=== PATIENT | female | born 1985 | race Caucasian/White ===

== ENCOUNTER 2017-03-25 10:44 | Emergency (ER) | payer OTHER ==
[2017-03-25 11:35] VITALS: BP 122/76
--- NOTE | 2017-03-25 11:56 | UC ---
Throat Pain/Nasal Tony HPI - HPI Summary HPI Summary: 31 Y/O female presents with C/O sore throat and upper respiratory congestion x 5 days. States throat pain 10/10, denies nausea, vomiting, dyspnea, or myalgias. Is drinking fluids without difficulty. Medical history and medications reviewed at this visit. - History of Current Complaint Chief Complaint: UCRespiratory Stated Complaint: COUGH, SORE THROAT Time Seen by Provider: 03/25/17 11:32 Hx Obtained From: Patient Hx Last Menstrual Period: pt states she is unable to have children Onset/Duration: Gradual Onset Severity: Severe Pain Intensity: 10 Pain Scale Used: 0-10 Numeric Cough: Nonproductive Associated Signs & Symptoms: Positive: Negative Related History: Seasonal Allergies - Epiglottits Risk Factors Epiglottis Risk Factors: Negative - Allergies/Home Medications Allergies/Adverse Reactions: Allergies Allergy/AdvReac Type Severity Reaction Status Date / Time Dextromethorphan Allergy Severe BREATHING Verified 03/25/17 11:35 [From NyQuil Nighttime PROBLEM Cold/Flu Medicine] Doxylamine Allergy Severe BREATHING Verified 03/25/17 11:35 [From NyQuil Nighttime PROBLEM Cold/Flu Medicine] Ethanol Allergy Severe BREATHING Verified 03/25/17 11:35 [From NyQuil Nighttime PROBLEM Cold/Flu Medicine] Pseudoephedrine Allergy Severe BREATHING Verified 03/25/17 11:35 [From NyQuil Nighttime PROBLEM Cold/Flu Medicine] Acetaminophen [From Tylenol] Allergy Swelling Verified 03/25/17 11:35 VICKS Allergy Severe BREATHING Uncoded 03/25/17 11:35 PROBLEM PMH/Surg Hx/FS Hx/Imm Hx Previously Healthy: Yes - Surgical History Surgical History: Yes Surgery Procedure, Year, and Place: BILAT EYE SURGERY - Family History Known Family History: Positive: None, Other - maternal-asthma - Social History Alcohol Use: None Substance Use Type: None Smoking Status (MU): Never Smoked Tobacco Household Exposure Type: Cigarettes Review of Systems Constitutional: Chills Skin: Negative Eyes: Negative ENT: Sore Throat, Sinus Congestion Respiratory: Cough Cardiovascular: Negative Gastrointestinal: Negative Genitourinary: Negative Motor: Negative Neurovascular: Negative Musculoskeletal: Negative Neurological: Negative Psychological: Negative Is Patient Immunocompromised?: No All Other Systems Reviewed And Are Negative: Yes Physical Exam Triage Information Reviewed: Yes Appearance: Ill-Appearing - Upper respiratory congestion Vital Signs: Initial Vital Signs Temp 98.6 F 01/27/18 11:31 Pulse 107 03/25/17 11:31 Resp 18 03/25/17 11:31 BP 122/76 03/25/17 11:31 Pulse Ox 100 03/25/17 11:31 Vital Signs Reviewed: Yes ENT: Positive: Pharyngeal erythema, TMs normal Dental Exam: Other Dental: Positive: Gross Decay/Caries @ - Diffuse affecting majority of dentition Neck exam: Normal Neck: Positive: No Lymphadenopathy Respiratory Exam: Normal Respiratory: Positive: Lungs clear, Normal breath sounds Cardiovascular Exam: Other Cardiovascular: Positive: Tachycardia Abdominal Exam: Normal Abdomen Description: Positive: Nontender Bowel Sounds: Positive: Present Musculoskeletal Exam: Normal Neurological Exam: Normal Psychological Exam: Normal Skin Exam: Normal Throat Pain/Nasal Course/Dx - Differential Dx/Diagnosis Differential Diagnosis/HQI/PQRI: Pharyngitis, Tonsillitis, URI Provider Diagnoses: Viral illness, pharyngitis Discharge - Discharge Plan Condition: Stable Disposition: HOME Patient Education Materials: Pharyngitis (ED) Referrals: Manfred Hoang MD [Primary Care Provider] - Additional Instructions: Your strep test is negative. Get plenty of rest, increase fluids. Avoid second hand smoke. Please return to urgent care if you are unable to swallow liquids, have fevers that do not respond to Tylenol or Ibuprofen, or if you have shortness of breath.
== END 2017-03-25 12:35 | disposition home or self-care (01) ==
LOC: UCEAST 10:44
DX: B34.9 Viral infection, unspecified (principal); J02.9 Acute pharyngitis, unspecified; Z88.6 Allergy status to analgesic agent
CPT/HCPCS: 87651; 99212; G0463

== ENCOUNTER 2019-02-09 18:32 | Emergency (ER) | payer OTHER ==
--- OUTSIDE RECORDS SUMMARY | 2019-02-09 18:37 | XMS REPORT | Summary of Care ---
:1985 Author Organization [facility] Address [address] [facility] [place] [address] Care Team Providers Name Role Phone Patrick Monae Primary Care Provider Reason for Visit Reason Comments Follow Up Follow up to (R) knee pain Encounter Details Date Type Department Care Team Description 01/09/2019 Office Visit [facility] Patrick Monae, Migraine without status migrainosus, not intractable, unspecified migraine type (Primary Dx); Practice [address] [facility] Pre-diabetes [address] [place] [address] [place] [address] [phone] Allergies Active Allergy Reactions Severity Noted Date Comments Bee Anaphylaxis 07/07/2015 Night-Time Cold-Flu Relief Swelling 02/23/2017 Throat documented as of this encounter (statuses as of 01/09/2019) Medications Medication Sig Dispensed Refills Start End Date Status Date EPINEPHrine 0.3 by Injection 0 Active MG/0.3ML Injection route. Solution Auto-injector pantoprazole TAKE ONE 90 Tab 0 Active (PROTONIX) 40 MG TABLET BY 9 Oral Tab MOUTH EVERY ECIndications: DAY BEFORE Gastroesophageal BREAKFAST reflux disease, esophagitis presence not specified diclofenac 4 g by Topical 1 Tube 2 Active (VOLTAREN) 1 % route FOUR 9 Transdermal TIMES DAILY. GelIndications: It band syndrome, right topiramate (TOPAMAX) Take 1 Tab by 90 Tab 0 Active 25 MG Oral mouth 9 TabIndications: DIRECTED. Go Migraine without to 2 tabs a status migrainosus, day after 2 not intractable, weeks unspecified migraine type metoclopramide Take 1 Tab by 30 Tab 0 Active (REGLAN) 10 MG Oral mouth DAILY 9 TabIndications: NEEDED Migraine without (migraine). status migrainosus, not intractable, unspecified migraine type tizanidine Take 1 Tab by 90 Tab 0 Active (ZANAFLEX) 4 MG Oral mouth DAILY. 9 Tab propranolol (INDERAL Take 1 Cap by 30 Cap 0 01/10/20 Discontinued LA) 80 MG Oral mouth EVERY 9 19 CAPSULE SR 24 MORNING. HRIndications: Migraine without status migrainosus, not intractable, unspecified migraine type cyclobenzaprine Take 1 Tab by 42 Tab 0 01/10/20 Discontinued (FLEXERIL) 10 MG mouth THREE 9 19 Oral Tab TIMES DAILY NEEDED (may cause of drowsiness) for up to 42 doses. cyclobenzaprine Take 1 Tab by 42 Tab 1 01/10/20 Discontinued (FLEXERIL) 10 MG mouth THREE 19 (Duplicate Oral Tab TIMES DAILY Order) NEEDED (pain). Watch for drowsiness documented as of this encounter (statuses as of 01/09/2019) Active Problems Problem Noted Date Moderate intellectual disabilities 12/16/2015 Right knee pain 08/03/2015 Migraine without aura and without status migrainosus, not intractable 2015 documented as of this encounter (statuses as of 01/09/2019) Resolved Problems Problem Noted Date Resolved Date Joint pain 11/30/2015 12/16/2015 documented as of this encounter (statuses as of 01/09/2019) Social History Tobacco Use Types Packs/Day Years Used Date Never Smoker Smokeless Tobacco: Never Used Alcohol Use Drinks/Week oz/Week Comments No Sex Assigned at Date Recorded Not on file Job Start Date Occupation Industry Not on file Not on file Not on file Travel History Travel Start Travel End No recent travel history available. documented as of this encounter Last Filed Vital Signs Vital Sign Reading Time Taken Comments Blood Pressure 106/72 01/09/2019 10:41 AM EST Pulse 82 01/09/2019 10:41 AM EST Temperature 36.3 01/09/2019 10:41 AM EST C (97.3 F) Respiratory Rate 18 01/09/2019 10:41 AM EST Oxygen Saturation 98% 01/09/2019 10:41 AM EST Inhaled Oxygen Concentration - - Weight 83.6 kg (184 lb 4.8 oz) 01/09/2019 10:41 AM EST Height 147.3 cm (4' 10") 01/09/2019 10:41 AM EST Body Mass Index 38.52 01/09/2019 10:41 AM EST documented in this encounter Patient Instructions Patient InstructionsPatrick Monae DO - 01/09/2019 10:40 AM ESTStart topamax: 1 tab a day for first 2 weeks Go to 2 tabs a day after 2 weeks Use reglan for breaking headaches documented in this encounter Progress Notes Patrick Monae DO - 01/09/2019 10:40 AM EST PATIENT: Jannette Kelly : 1985 DATE OF SERVICE: 01/09/2019 CHIEF COMPLAINT: Chief Complaint Patient presents with Follow Up Follow up to (R) knee pain Subjective HISTORY OF PRESENT ILLNESS: Jannette Kelly is a 33-y.o. female. HPI Migraine follow up Elavil made her too drowsy Inderal not working at 80 mg Past Medical History: Diagnosis Date Migraine Family History Problem Relation Age of Onset High Cholesterol Mother Heart Maternal Grandmother Diabetes Maternal Grandmother High Cholesterol Maternal Grandmother Hypertension Maternal Grandmother Diabetes Maternal Grandfather Current Outpatient Medications Medication Sig diclofenac (VOLTAREN) 1 % Transdermal Gel 4 g by Topical route FOUR TIMES DAILY. EPINEPHrine 0.3 MG/0.3ML Injection Solution Auto-injector by Injection route. metoclopramide (REGLAN) 10 MG Oral Tab Take 1 Tab by mouth DAILY NEEDED (migraine). pantoprazole (PROTONIX) 40 MG Oral Tab EC TAKE ONE TABLET BY MOUTH EVERY DAY BEFORE BREAKFAST tizanidine (ZANAFLEX) 4 MG Oral Tab Take 1 Tab by mouth DAILY. topiramate (TOPAMAX) 25 MG Oral Tab Take 1 Tab by mouth DIRECTED. Go to 2 tabs a day after2 weeks No current facility-administered medications for this visit. Allergies Allergen Reactions Bee Anaphylaxis Nyquil Cold & [Night-Time Cold-Flu Relief] Swelling Throat Social History Socioeconomic History Marital status: Single Spouse name: Not on file Number of children: Not on file Years of education: Not on file Highest education level: Not on file Occupational History Not on file Social Needs Financial resource strain: Not on file Food insecurity: Worry: Not on file Inability: Not on file Transportation needs: Medical: Not on file Non-medical: Not on file Tobacco Use Smoking status: Never Smoker Smokeless tobacco: Never Used Substance and Sexual Activity Alcohol use: No Drug use: Not on file Sexual activity: Not on file Lifestyle Physical activity: Days per week: Not on file Minutes per session: Not on file Stress: Not on file Relationships Social connections: Talks on phone: Not on file Gets together: Not on file Attends mandaen service: Not on file Active member of club or organization: Not on file Attends meetings of clubs or organizations: Not on file Relationship status: Not on file Intimate partner violence: Fear of current or ex partner: Not on file Emotionally abused: Not on file Physically abused: Not on file Forced sexual activity: Not on file Other Topics Concern Back Care Not Asked Bike Helmet Not Asked Blood Transfusions Not Asked Caffeine Concern Not Asked Exercise Not Asked Hobby Hazards Not Asked International Travel Not Asked Service Not Asked Occupational Exposure Not Asked Seat Belt Not Asked Self-Exams Not Asked Sleep Concern Not Asked Special Diet Not Asked Stress Concern Not Asked Weight Concern Not Asked Social History Narrative Not on file REVIEW OF SYSTEMS: Review of Systems Constitutional: Negative for fever. Cardiovascular: Negative for chest pain. Objective PHYSICAL EXAM: VITALS: BP 106/72 (BP Location: Left arm, Patient Position: Sitting) | Pulse 82 | Temp 97.3 F(36.3 C) (Tympanic) | Resp 18 | Ht 4' 10" (1.473 m) | Wt 184 lb 4.8 oz (83.6 kg) | SpO2 98%| BMI 38.52 kg/m Body mass index is 38.52 kg/m. Physical Exam Cardiovascular: Rate and Rhythm: Normal rate. Pulmonary: Effort: Pulmonary effort is normal. Neurological: Mental Status: She is alert. ASSESSMENT / IMPRESSION: ICD-9-CM ICD-10-CM 1. Migraine without status migrainosus, not intractable, unspecified migraine type 346.90 G43.909 topiramate (TOPAMAX) 25 MG Oral Tab metoclopramide (REGLAN) 10 MG Oral Tab 2. Pre-diabetes 790.29 R73.03 GLYCOHEMOGLOBIN A1C GLYCOHEMOGLOBIN A1C Plan Patient Instructions Start topamax: 1 tab a day for first 2 weeks Go to 2 tabs a day after 2 weeks Use reglan for breaking headaches Author: Patrick Monae DO 01/09/2019 13:05 documented in this encounter Plan of Treatment Date Type Specialty Care Team Description 04/26/2019 Office Visit Family Practice Saran Herrmann MD [address] [place] [address] [phone] Name Type Priority Associated Diagnoses Date/Time GLYCOHEMOGLOBIN A1C Lab Routine Pre-diabetes 01/09/2019 11:22 AM EST Name Type Priority Associated Diagnoses Order Schedule GLYCOHEMOGLOBIN A1C Lab Routine Pre-diabetes Expected: 01/09/2019 (Approximate), Expires: 01/10/2020 Health Maintenance Due Date Last Done Comments HIV SCREENING 2001 PAP SMEAR 09/11/2017 09/11/2014 (Previously completed) DIABETES SCREENING 04/23/2019 04/23/2018, 04/23/2018, 07/07/2015 DEPRESSION SCREENING 09/14/2019 09/13/2018 INFLUENZA VACCINE (#1) 2019 Postponed from 10/28/2018 (Patient refused) HPV IMMUNIZATION SERIES Aged Out No longer eligible based on patient's age to complete this topic MENINGOCOCCAL VACCINE IMM Aged Out No longer eligible based on patient's age to complete this topic PNEUMOCOCCAL 0-64 YRS Aged Out No longer eligible based on patient's age to complete this topic documented as of this encounter Goals Goal Patient Goal Associated Recent Patient-Stated? Author Type Problems Progress Glycohemoglobin A1c Diabetes 5.7 No Patrick Monae < 7.0 (04/23/2018 DO Peter 11:14 AM EST) Note: This is an individualized treatment (diabetes control, HgbA1C) goal for Jannette Hayesaughlin: Displayed above is your progress towards your HgbA1C goal. Your goal is shown above (on the left); your most recent HgbA1C is shown on the right. Note that lower numbers are better. Weight loss vs. 18 mo Lifestyle 0.7 (01/09/2019 10:41 AM EST) No Patrick Monae DO max (lbs) >= 10 Note: This is an individualized lifestyle goal for Jannette Kelly: Your body mass index (BMI) is more than 30. You should lose weight. A reasonable starting goal is to lose 10 pounds. Displayed above is how many pounds you have lost thus far towards your 10 pound weight loss goal. Keep immunizations current Lifestyle No Patrick Monae DO Note: This is an individualized lifestyle goal for Jannette Kelly: Please be sure to keep up-to-date on recommended immunizations. For example, this would include a yearly influenza vaccine. Immunization status can be seen by looking at the Health Maintenance sections of your [facility], Plan of Care, and any After Visit Summaries. Take all prescribed medications as directed Self-management No Patrick Monae DO Note: This is an individualized self-management goal for Jannette Kelly: Please take all prescribed medications as directed. 1. Do not skip doses. If you cannot afford your medications, talk with your doctor. 2. Use a pill reminder system such as a pill box if needed. Your pharmacist can help you with this. 3. Contact your Pharmacy 5 days before your medication runs out. If you cannot take your medications for any reasons, talk with your doctor. 4. Please bring all of your medication bottles and inhalers (or a list of all your medications/inhalers) with you to every visit. Potential barriers to meeting all of your care plan goals will continue to be addressed on an ongoing basis. documented as of this encounter Results Not on filedocumented in this encounter Visit Diagnoses Diagnosis Migraine without status migrainosus, not intractable, unspecified migraine type - Primary Pre-diabetes Other abnormal glucose documented in this encounter Guarantor Name Account Type Relation to Date of Phone Billing Patient Address Jannette Kelly Personal/Family 1985 [address] (Home) [facility] [place] [address] documented as of this encounter
--- OUTSIDE RECORDS SUMMARY | 2019-02-09 18:37 | XMS REPORT | Summary of Care ---
:1985 Author Organization [facility] Address [address] [facility] [place] [address] Care Team Providers Name Role Phone Letha Patrick Green Primary Care Provider Reason for Visit Reason Comments Knee Pain right knee, fall Hip Burn right hip, from fall Encounter Details Date Type Department Care Team Description 12/20/2018 Office Visit [facility]lin Jasmina Barba It band syndrome, Practice DIRECTOR [employer] right (Primary Dx) [address] [place] [address] [place] [address] [phone] Allergies Active Allergy Reactions Severity Noted Date Comments Bee Anaphylaxis 07/07/2015 Night-Time Cold-Flu Relief Swelling 02/23/2017 Throat documented as of this encounter (statuses as of 12/20/2018) Medications Medication Sig Dispensed Refills Start Date End Date Status EPINEPHrine 0.3 MG/0.3ML by Injection 0 Active Injection Solution route. Auto-injector propranolol (INDERAL LA) Take 1 Cap by 30 Cap 0 12/11/2018 Active 80 MG Oral CAPSULE SR 24 mouth EVERY HRIndications: Migraine MORNING. without status migrainosus, not intractable, unspecified migraine type pantoprazole (PROTONIX) TAKE ONE TABLET 90 Tab 0 12/11/2018 Active 40 MG Oral Tab BY MOUTH EVERY ECIndications: DAY BEFORE Gastroesophageal reflux BREAKFAST disease, esophagitis presence not specified diclofenac (VOLTAREN) 1 4 g by Topical 1 Tube 2 12/20/2018 Active % Transdermal route FOUR TIMES GelIndications: It band DAILY. syndrome, right documented as of this encounter (statuses as of 12/20/2018) Active Problems Problem Noted Date Moderate intellectual disabilities 12/16/2015 Right knee pain 08/03/2015 Migraine without aura and without status migrainosus, not intractable 2015 documented as of this encounter (statuses as of 12/20/2018) Resolved Problems Problem Noted Date Resolved Date Joint pain 11/30/2015 12/16/2015 documented as of this encounter (statuses as of 12/20/2018) Social History Tobacco Use Types Packs/Day Years [...] Sign Reading Time Taken Comments Blood Pressure 130/60 12/20/2018 10:43 AM EDT Pulse 64 12/20/2018 10:43 AM EDT Temperature 36.6 12/20/2018 10:43 AM EDT C (97.9 F) Respiratory Rate - - Oxygen Saturation 98% 12/20/2018 10:43 AM EDT Inhaled Oxygen Concentration - - Weight 82.6 kg (182 lb) 12/20/2018 10:43 AM EDT Height 147.3 cm (4' 10") 12/20/2018 10:43 AM EDT Body Mass Index 38.04 12/20/2018 10:43 AM EDT documented in this encounter Patient Instructions Patient InstructionsJasmina Garcia NP - 12/20/2018 10:40 AM EDTUse heating pads/ cold packs to the area. Rest when able, avoid activities that make the pain worse. Voltaren cream 3-4 times daily for 5 days, then cut back to just as needed. Do at home exercises once a day. Follow up with Dr. Monae as needed if pain continues or worsens. Patient Education Sciatica Exercises About this topic Sciatica is pain, weakness, numbness, or tingling that runs from your buttocks down the back of yourleg to your feet. It happens when something is pressing on , or bothering, the sciatic nerve. This large nerve starts in your lower back. It runs all the way down the back of your leg. The exercises for sciatica may be different based on the cause of your pain. General Before starting with a program, ask your doctor if you are healthy enough to do these exercises. Your doctor may have you work with a new product trainer or physical therapist to make a safe exercise program to meet your needs. Stretching Exercises Stretching exercises keep your muscles flexible. They also stop them from getting tight. Start by doing each of these stretches 2 to 3 times. In order for your body to make changes, you will need to hold these stretches for 20 to 30 seconds. Try to do the stretches 2 to 3 times each day. Do all exercises slowly. Single knee to chest stretches ? Lie on your back. Pull one knee towards your chest until you feel a stretch in your lower back and buttock area. Repeat with the other knee. If you have knee problems, pull your knee up by grabbing the back of your thigh instead of the front of your knee. You can also do this exercise by grabbing both knees at the same time. Deep hip stretches lying down ? Lie on your back and bend one knee, keeping that foot flat on the floor. Cross the other leg over your knee. Slowly , pull the bottom leg towards your chest until you feel a stretch in the other buttock. Repeat using the opposite leg as the bottom leg. Deep hip stretches sitting ? Sit on the floor with both legs straight. Take one leg and cross it over the other leg so that the foot of your top leg is next to your outer knee. Now, take the elbowon the opposite side of your bent knee and bring it to the outside of the bent knee. With your elbow, slowly push the bent knee further across the body to get a good stretch in the hip. Hamstring stretches seated ? Sit up straight on the edge of a chair. Make sure you keep your back straight. Straighten your knee on your left leg. Keep your heel on the floor. Bend forward at the waist towards your foot while keeping your upper back straight. Bend forward until you feel a stretchin the back of your thigh. Repeat on the other leg. Strengthening Exercises Strengthening exercises keep your muscles firm and strong. Start by repeating each exercise 2 to 3 times. Work up to doing each exercise 10 times. Try to do the exercises 2 to 3 times each day. Hold each exercise for 3 to 5 seconds. Do all exercises slowly. Hip lifts ? Lie on your back with your knees bent and feet flat on the floor. Tighten your stomach muscles and lift your buttocks off the floor. Relax. Arm and leg lifts on hands and knees ? Start on your hands and knees. With all of these exercises, keep your back as level as possible. If you are having trouble with this, you may want to put a small object on your back such as a book. If it falls off, you are not keeping your back level enough during the exercise. ? Lift one arm up to shoulder level and hold. Lower it back down. Now, lift up the other arm and hold. ? Lift one leg up and kick it straight out until it is in line with your back and hold. Lower it back down. Now, lift up the other leg and hold. ? Lift one arm and the OPPOSITE leg up at the same time and hold. Lower them down. Now, repeat usingthe other arm and leg. This is a very hard exercise. It may take time to be able to do this. What will the results be? Better flexibility Less pain Less numbness and tingling Easier to walk and do other activities Increased core strength Helpful tips Stay active and work out to keep your muscles strong and flexible. Keep a healthy weight to avoid putting too much stress on your spine. Eat a healthy diet to keep your muscles healthy. Be sure you do not hold your breath when exercising. This can raise your blood pressure. If youtend to hold your breath, try counting out loud when exercising. If any exercise bothers you, stop right away. Always warm up before stretching. Heated muscles stretch much easier than cool muscles. Stretching cool muscles can lead to injury. Try walking or cycling at an easy pace for a few minutes to warm up your muscles. Do this againafter exercising. Never bounce when doing stretches. Doing exercises before a meal may be a good way to get into a routine. Exercise may be slightly uncomfortable, but you should not have sharp pains. If you do get sharp pains, stop what you are doing. If the sharp pains continue, call your doctor. Where can I learn more? NHS Choices http://www.nhs.uk/[facility]/Backpain/Pages/sciatica-exercises.aspx Last Reviewed Date 2015-12-08 Consumer Information Use and Disclaimer This information is not specific medical advice and does not replace information you receive from your health care provider. This is only a brief summary of general information. It does NOT include allinformation about conditions, illnesses, injuries, tests, procedures, treatments, therapies, discharge instructions or life-style choices that may apply to you. You must talk with your health care provider for complete information about your health and treatment options. This information should not beused to decide whether or not to accept your health care providers advice, instructions or recommendations. Only your health care provider has the knowledge and training to provide advice that isright for you. Copyright Copyright 2018 [employer] and its affiliates and/or licensors. All rights reserved. documented in this encounter Progress Notes Jasmina Garcia NP - 12/20/2018 10:40 AM EDT PATIENT: Jannette Kelly : 1985 DATE OF SERVICE: 12/20/2018 CHIEF COMPLAINT: Chief Complaint Patient presents with Knee Pain right knee, fall Hip Burn right hip, from fall Subjective HISTORY OF PRESENT ILLNESS: Jannette Kelly is a 33-y.o. female. HPI She fell in 2005 and has had right knee and hip pain ever since. Has done physical therapy in the past which didn't help. She has been going to see Dr. Almanzar - last visit was 11/26/2018: History of Present Illness: Jannette Kelly is a 33-y.o. female today for follow-up. Patient was previously seen by Dr. Hunt on 07/11/2018, and also been seen by Betty Armendariz or JOSEE. The patient has been seen for low backdiscomfort and also IT band tendinitis. The patient had been referred to physical therapy and chiropractic intervention. However the patient's mother states that the patient was worse with physical therapy. Plan: I would like to refer the patient for physical therapy the patient is in agreement with being seen by physical therapy patient will also be given a prescription for Medrol Dosepak. The plan at this point is for the patient to be seen back in the Dr. Cruz's office no further orthopedic intervention is indicated at this time as she has been seen by myself and Dr. Hunt. All questions answered. She acknowledges that Dr. Almanzar had suggested another course of physical therapy but she does not want to do this, feels it will make the pain worse. Last time she did physical therapy she went twicea week and pain became worse. Right now only treatment is mother massaging the area. Sometimes heating pad but not often but thisdoes help. It is not worse today, it is the same as it always been, just not getting better. When it's cold itgets worse, needs to turn the heat on. Past Medical History: Diagnosis Date Migraine Family History Problem Relation Age of Onset High Cholesterol Mother Heart Maternal Grandmother Diabetes Maternal Grandmother High Cholesterol Maternal Grandmother Hypertension Maternal Grandmother Diabetes Maternal Grandfather Current Outpatient Medications Medication Sig diclofenac (VOLTAREN) 1 % Transdermal Gel 4 g by Topical route FOUR TIMES DAILY. EPINEPHrine 0.3 MG/0.3ML Injection Solution Auto-injector by Injection route. pantoprazole (PROTONIX) 40 MG Oral Tab EC TAKE ONE TABLET BY MOUTH EVERY DAY BEFORE BREAKFAST propranolol (INDERAL LA) 80 MG Oral CAPSULE SR 24 HR Take 1 Cap by mouth EVERY MORNING. No current facility-administered medications for this visit. [...] file Gets together: Not on file Attends scientologist service: Not on file Active member of [...] file REVIEW OF SYSTEMS: Review of Systems Musculoskeletal: Positive for back pain, joint pain (see hpi) and myalgias. Neurological: Negative for tingling, sensory change and weakness. Objective PHYSICAL EXAM: VITALS: BP 130/60 | Pulse 64 | Temp 97.9 F (36.6 C) (Tympanic) | Ht 4' 10" (1.473 m) | Wt 182 lb (82.6 kg) | SpO2 98% | BMI 38.04 kg/m Body mass index is 38.04 kg/m. Physical Exam Musculoskeletal: Right hip: She exhibits normal range of motion, normal strength, no tenderness, no bony tenderness, no swelling, no crepitus and no deformity. Left hip: Normal. Right knee: She exhibits normal range of motion, no swelling, no effusion, no deformity, no erythema and no bony tenderness. No tenderness found. Left knee: Normal. Cervical back: Normal. Thoracic back: Normal. Lumbar back: Normal. Comments: Straight leg mild on right, negative left ASSESSMENT / IMPRESSION: ICD-9-CM ICD-10-CM 1. It band syndrome, right 728.89 M76.31 diclofenac (VOLTAREN) 1 % Transdermal Gel Plan 1. It band syndrome, right She refuses physical therapy. She states she can not take nsaids. Will prescribe voltaren gel and give home exercises she can do. Heating pads/cold packs. Rest and avoid aggravating activities. - diclofenac (VOLTAREN) 1 % Transdermal Gel; 4 g by Topical route FOUR TIMES DAILY. Dispense: 1 Tube; Refill: 2 Use heating pads/ cold packs to the area. Rest when able, avoid activities that make the pain worse. Voltaren cream 3-4 times daily for 5 days, then cut back to just as needed. Do at home exercises once a day. Follow up with Dr. Monae as needed if pain continues or worsens. Author: Jasmina Garcia NP 12/20/2018 18:58 documented in this encounter Plan of Treatment Health Maintenance Due Date Last Done Comments [...] treatment (diabetes control, HgbA1C) goal for Jannette Kelly: Displayed above is your progress towards your HgbA1C goal. Your goal is shown above (on the left); your most recent HgbA1C is shown on the right. Note that lower numbers are better. Weight loss vs. 18 mo max Lifestyle 5 (12/20/2018 10:43 AM EDT) Patrick Mccormick DO (lbs) >= 10 Note: This is an [...] Take all prescribed medications as directed Self-management Patrick Mccormick DO Note: This is an individualized self-management [...] filedocumented in this encounter Visit Diagnoses Diagnosis It band syndrome, right - Primary documented in this encounter documented as of this encounter
[2019-02-09] MEDS ORDERED: Ondansetron ODT TAB* 4 MG PO ONE ×2 (18:57→20:03)
--- NOTE | 2019-02-09 19:04 | UC ---
Abdominal Pain Female HPI - HPI Summary HPI Summary: The patient is a 33-year-old female who developed generalized abdominal pain, nausea, vomiting 5, diarrhea 4 since this a.m. She states her abdominal pain is been constant. She denies any fever. She denies any UTI symptoms. She denies any vaginal discharge or itching. She has had no abdominal surgeries. - History of Current Complaint Chief Complaint: UCAbdominalPain Stated Complaint: ABDOMINAL PAIN Time Seen by Provider: 02/09/19 18:46 Hx Obtained From: Patient Hx Last Menstrual Period: 1 week ago Onset/Duration: Gradual Onset, Lasting Hours Timing: Constant Severity Initially: Moderate Severity Currently: Severe Pain Intensity: 10 Pain Scale Used: 0-10 Numeric Location: Diffuse Radiates: No Character: Cramping Aggravating Factor(s): Food Alleviating Factor(s): Nothing Associated Signs and Symptoms: Positive: Dizzy, Nausea, Vomiting, Diarrhea. Negative: Diaphoresis, Fever, Cough, Chest Pain, Back Pain, Constipation, Blood in Stool, Urinary Symptoms, Decreased Appetite, Vaginal Bleeding, Vaginal Discharge Female Torso: 1 - band like pain Allergies/Adverse Reactions: Allergies Allergy/AdvReac Type Severity Reaction Status Date / Time acetaminophen [From NyQuil] Allergy Swelling Verified 02/09/19 18:44 Of Face,Lips,& Throat camphor [From Vicks Vaporub] Allergy Swelling Verified 02/09/19 18:44 Of Face,Lips,& Throat dextromethorphan Allergy Swelling Verified 02/09/19 18:44 [From NyQuil] Of Face,Lips,& Throat doxylamine [From NyQuil] Allergy Swelling Verified 02/09/19 18:44 Of Face,Lips,& Throat eucalyptus Allergy Swelling Verified 02/09/19 18:44 [From Vicks Vaporub] Of Face,Lips,& Throat menthol [From Vicks Vaporub] Allergy Swelling Verified 02/09/19 18:44 Of Face,Lips,& Throat petrolatum,white Allergy Swelling Verified 02/09/19 18:44 [From Vicks Vaporub] Of Face,Lips,& Throat pseudoephedrine [From NyQuil] Allergy Swelling Verified 02/09/19 18:44 Of Face,Lips,& Throat turpentine oil Allergy Swelling Verified 02/09/19 18:44 [From Vicks Vaporub] Of Face,Lips,& Throat Home Medications: Home Medications "Headache Pill"* 02/09/19 [History] "Heartburn Pill"* 02/09/19 [History] PMH/Surg Hx/FS Hx/Imm Hx Previously Healthy: Yes GI/ History: Gastroesophageal Reflux - Surgical History Surgical History: Yes Surgery Procedure, Year, and Place: BILAT EYE SURGERY - Family History Known Family History: Positive: Hypertension, Other - maternal-asthma Negative: Cardiac Disease, Diabetes - Social History Alcohol Use: None Substance Use Type: None Smoking Status (MU): Never Smoked Tobacco Household Exposure Type: Cigarettes Review of Systems All Other Systems Reviewed And Are Negative: Yes Constitutional: Positive: Fatigue Skin: Positive: Negative Eyes: Positive: Negative ENT: Positive: Negative Respiratory: Positive: Negative Cardiovascular: Positive: Negative Gastrointestinal: Positive: Abdominal Pain, Vomiting, Diarrhea, Nausea Genitourinary: Positive: Negative Motor: Positive: Negative Neurovascular: Positive: Negative Musculoskeletal: Positive: Negative Neurological: Positive: Negative Psychological: Positive: Negative Physical Exam Triage Information Reviewed: Yes Appearance: Well-Appearing, No Pain Distress, Well-Nourished Vital Signs: Initial Vital Signs Temp 98.7 F 02/09/19 18:39 Pulse 123 02/09/19 18:39 Resp 18 02/09/19 18:39 BP 114/76 02/09/19 18:39 Pulse Ox 98 02/09/19 18:39 Vital Signs Reviewed: Yes Eyes: Positive: Conjunctiva Clear ENT: Positive: Hearing grossly normal. Negative: Nasal congestion, Nasal drainage, Trismus, Muffled voice, Hoarse voice Neck: Positive: Supple, Nontender, No Lymphadenopathy Respiratory: Positive: Lungs clear, Normal breath sounds, No respiratory distress Cardiovascular: Positive: RRR, No Murmur Abdomen Description: Positive: No Organomegaly, Soft, Other: - diffusely tender. Negative: Nontender, CVA Tenderness (R), CVA Tenderness (L) Bowel Sounds: Positive: Present Musculoskeletal: Positive: ROM Intact, No Edema Neurological: Positive: Alert Psychological Exam: Normal Skin Exam: Normal Diagnostics - Laboratory Lab Results: UA neg uHCG neg Re-Evaluation - Re-Evaluation First Eval Re-Evaluation Time: 19:44 Change: Improved - nausea better- pain unchanged....refuses to go to ER Second Eval Re-Evaluation Time: 20:03 Change: Improved - no pain Abd Pain Female Course/Dx - Course Course Of Treatment: I suggested IV fluids She refused Will try zofran and recheck Upon reexamination patient refuses to go to the ER for evaluation I offered EMS transfer she and her mother refused Pain free after gi cocktail - Differential Dx/Diagnosis Provider Diagnosis: Gastroenteritis Discharge ED - Sign-Out/Discharge Documenting (check all that apply): Patient Departure All imaging exams completed and their final reports reviewed: No Studies - Discharge Plan Condition: Stable Disposition: HOME Patient Education Materials: Gastroenteritis (ED) Referrals: No Primary Care Phys,NOPCP [Primary Care Provider] - Additional Instructions: TO ER IF SYMPTOMS WORSEN see your MD on Monday if new symptoms develop go to the ER - Billing Disposition and Condition Condition: STABLE Disposition: Home
[2019-02-09 19:37] VITALS: BP 120/71
[2019-02-09] MEDS ORDERED: Lidocaine 2% VISCOUS* 15 ML UDC PO ONE (19:41)
[2019-02-09] MEDS ORDERED: Al Hydrox/Mg Hydrox/Simet LIQ* 30 ML UDC PO ONE (19:41)
== END 2019-02-09 20:16 | disposition home or self-care (01) ==
LOC: UCEAST 18:32
DX: K52.9 Noninfective gastroenteritis and colitis, unspecified (principal); Z88.8 Allergy status to other drugs, medicaments and biological substances
CPT/HCPCS: 81003; 84702; 99213; A9270-GY; G0463